=== PATIENT | female | born 1990 | race American Indian/Alaskan Native ===

== ENCOUNTER 2016-11-12 09:55 | Emergency (ER) | payer SELFPAY ==
[2016-11-12 12:23] LABS: Basophils % (Auto) 1.1 % (0.0-1.8); Eosinophils % (Auto) 2.2 % (0.0-4.3); Hematocrit 32.1 % (30.3-42.9); Hemoglobin 10.1 gm/dl (10.1-14.3); Mean Corpuscular HGB Conc 31 % (30-34); Mean Corpuscular Hemoglobin 24 pg (28-32); Mean Corpuscular Volume 76 fl (79-97); Platelet Count 260 K/mm3 (140-440); Red Blood Count 4.24 M/mm3 (3.65-5.03); Red Cell Distribution Width 20.1 % (13.2-15.2); White Blood Count 4.4 K/mm3 (4.5-11.0)
[2016-11-12 12:27] LABS: Anion Gap 17 mmol/L; BUN/Creatinine Ratio 8.75; Blood Urea Nitrogen 7 mg/dL (7-17); Calcium 9.1 mg/dL (8.4-10.2); Carbon Dioxide 24 mmol/L (22-30); Chloride 105.9 mmol/L (98-107); Glucose 79 mg/dL (65-100); Sodium 143 mmol/L (137-145)
[2016-11-12 13:52] LABS: Bacteria,Urine 1+ /HPF (Negative); Bilirubin,Urine NEG (Negative); Blood,Urine MOD (Negative); Ketones,Urine 20 mg/dL (Negative); Leukocyte Esterase,Urine NEG (Negative); Mucus,Urine 2+ /HPF; Nitrite,Urine NEG (Negative)
[2016-11-12 15:51] VITALS: BP 114/66
[2016-11-12] MEDS ORDERED: PEPCID PO ONE (18:25)
[2016-11-12] MEDS ORDERED: ZOFRAN PO ONE (18:26)
--- NOTE | 2016-11-12 18:47 | Emergency Department Report ---
Vomiting/Diarrhea - HPI Chief Complaint: Nausea/Vomiting/Diarrhea Stated Complaint: POSS FOOD POISONING Time Seen by Provider: 11/12/16 18:24 Duration: 1 Day Severity: mild Nausea/Vomiting Severity: Moderate Diarrhea Severity: None Pain Location: Epigastric Pain Severity: Moderate Symptoms: Yes Recent Unusual Foods, No Watery Diarrhea, No Bloody diarrhea, No Fever, No Able to Tolerate Fluids, No Recent Untreated Water, No Recent use of Antibiotics, No Family w/ Similar Symptoms, No Contacts w/ Similar Symptoms, No Rash, No Hematuria, No Recent URI Symptoms Other History: 26-year-old female here with complaint of nausea and vomiting since yesterday. States that she ate some funny fish. Complains of some chest pain especially when she is about to vomit or immediately after vomiting. No blood in her vomit. She has not tried to eat or drink anything today. ED Review of Systems ROS: Stated complaint: POSS FOOD POISONING Other details as noted in HPI Comment: All other systems reviewed and negative Constitutional: chills, fever, malaise. denies: see HPI Cardiovascular: chest pain. denies: palpitations, dyspnea on exertion Gastrointestinal: abdominal pain, nausea, vomiting ED Past Medical Hx - Past Medical History Previous Medical History?: No - Social History Smoking Status: Never Smoker Substance Use Type: None - Medications Home Medications: Home Medications Medication Instructions Recorded Confirmed Last Taken Type Azithromycin [Zithromax Z-YOUSIF] 500 mg PO ONCE #1 pack 04/30/13 Unknown Rx Promethazine [Phenergan] 25 mg PO Q6H PRN #12 tablet 04/30/13 Unknown Rx predniSONE [Deltasone] 60 mg PO QDAY #9 tablet 04/30/13 Unknown Rx Famotidine [Pepcid] 20 mg PO BID #60 tablet 11/12/16 Unknown Rx Ondansetron [Zofran TAB] 4 mg PO Q8HR PRN #10 tablet 11/12/16 Unknown Rx Vomiting Diarrhea Exam - Exam General: Vital signs noted. No distress. Alert and acting appropriately. HEENT: Yes Moist Mucous Membranes, No Pharyngeal Erythema, No Pharyngeal Exudates, No Rhinorrhea, No Conjuctival Injection, No Frontal Tenderness Lungs: Yes Clear Lung Sounds, Yes Good Air Exchange Heart exam: Regular: Yes, Murmur: No, Tachycardia: No Abdomen: Tenderness: No Skin exam: Rash: No, Edema: No Neurologic: Alert and oriented, no deficits. Musculoskeletal: Unremarkable. ED Course Vital Signs 11/12/16 11/12/16 11:35 15:49 Temperature 98.7 F 98.5 F Pulse Rate 67 110 H Respiratory 16 18 Rate Blood Pressure 109/66 Blood Pressure 114/66 [Left] O2 Sat by Pulse 99 100 Oximetry ED Medical Decision Making - Lab Data Result diagrams: 11/12/16 11:48 11/12/16 11:48 Laboratory Results - last 24 hr 11/12/16 11/12/16 11/12/16 11:48 11:48 Unknown WBC 4.4 L RBC 4.24 Hgb 10.1 Hct 32.1 MCV 76 L MCH 24 L MCHC 31 RDW 20.1 H Plt Count 260 Lymph % (Auto) 32.2 [place] % (Auto) 7.3 Eos % (Auto) 2.2 Baso % (Auto) 1.1 Lymph # 1.4 [place] # 0.3 Eos # 0.1 Baso # 0.1 Seg Neutrophils % 57.2 Seg Neutrophils # 2.5 Sodium 143 Potassium 4.0 Chloride 105.9 Carbon Dioxide 24 Anion Gap 17 BUN 7 Creatinine 0.8 Estimated GFR > 60 BUN/Creatinine Ratio 8.75 Glucose 79 Calcium 9.1 Urine Color Yellow Urine Turbidity Clear Urine pH 6.0 Ur Specific [place] 1.023 Urine Protein 30 mg/dl Urine Glucose (UA) Neg Urine Ketones 20 Urine Blood Mod Urine Nitrite Neg Urine Bilirubin Neg Urine Urobilinogen 2.0 Ur Leukocyte Esterase Neg Urine WBC (Auto) 1.0 Urine RBC (Auto) 9.0 U Epithel Cells (Auto) 1.0 Urine Bacteria (Auto) 1+ Urine Mucus 2+ - Medical Decision Making 26-year-old with nausea vomiting and mild chest pain with her vomiting. She appears clinically well. Her vital signs are normal. Plan to give her a dose of oral Zofran and Pepcid to settle her stomach. Labs are normal. Plan to check a chest x-ray given pain with vomiting. If negative will discharge. Portions of this chart were dictated with dictation software. There may be dictation errors contained within this note. Critical care attestation.: If time is entered above; I have spent that time in minutes in the direct care of this critically ill patient, excluding procedure time. ED Disposition Clinical Impression: Nausea and vomiting Disposition: DC-01 TO HOME OR SELFCARE Is pt being admited?: No Condition: Stable Instructions: Acute Nausea and Vomiting (ED) Prescriptions: Famotidine [Pepcid] 20 mg PO BID #60 tablet Ondansetron [Zofran TAB] 4 mg PO Q8HR PRN #10 tablet PRN Reason: Nausea
== END 2016-11-12 19:40 | disposition home or self-care (01) ==
LOC: ED 09:55
DX: R11.2 Nausea with vomiting, unspecified (principal)
CPT/HCPCS: 36415; 80048; 81001; 82962; 85025; 93005; 93010; 99283; Q0162